=== PATIENT | male | born 1955 | race African-American/Black ===

== ENCOUNTER 2020-01-09 15:04 | Observation (INO) | payer MEDICARE, OTHER ==
--- NOTE | 2020-01-09 15:06 | ERPHSYRPT ---
- History of Present Illness Time Seen by Provider: 01/09/20 15:06 Source: EMS Exam Limitations: clinical condition Physician History: This is a 64-year-old white male who presents via EMS with a history of syncope and "bleeding" from scrotum without evidence of injury. Patient arrived at the boat dock at [facility]. There was a call to the ambulance service with the above stated complaints. In route to this facility, the patient was in and out of consciousness. Because of the EMS report, immediately upon arrival through the emergency department doors, the patient went to the CAT scan to obtain a CAT scan of his head, chest and abdomen pelvis. Report from EMS states that there are no known drug allergies. EMS also states that the patient told them he is never had a heart attack or cardiac stents in the past. He only has diabetes and hypertension. Timing/Duration: today Severity: mild Associated Symptoms: syncope, other (Oozing of blood from scrotum. Mild and of low rate) Allergies/Adverse Reactions: No Known Drug Allergies Allergy (Unverified 01/09/20 15:49) Home Medications: Allopurinol 100 mg [Zyloprim 100 mg] 1 ea DAILY 01/09/20 [History] Metformin HCl 1,000 mg DAILY 01/09/20 [History] Testosterone Cypionate 1 ea 2XW 01/09/20 [History] Travel Risk - International Travel Have you traveled outside of the country in past 3 weeks: No Have you or anyone close to you been diagnosed with or: No Do your reside in a community with a known COVID-19 case?: Yes If Yes where:: [facility] - Coronavirus Screening Has patient experienced Coronavirus symptoms: No - Review of Systems Constitutional: Weakness, Other (Dizzy) Eyes: No Symptoms Ears, Nose, & Throat: No Symptoms Respiratory: No Symptoms Cardiac: No Symptoms Abdominal/Gastrointestinal: No Symptoms Genitourinary Symptoms: No Symptoms Musculoskeletal: No Symptoms Skin: Other (Leading from scrotal sac on the right side) Neurological: Dizziness, Other (Couple episodes) Psychological: No Symptoms Endocrine: No Symptoms Hematologic/Lymphatic: No Symptoms Immunological/Allergic: No Symptoms All Other Systems: Reviewed and Negative - Past Medical History Neurological History: No Pertinent History ENT History: No Pertinent History Cardiac History: Hypertension Respiratory History: No Pertinent History Endocrine Medical History: Diabetes Type II Musculoskeletal History: No Pertinent History GI Medical History: No Pertinent History History: No Pertinent History Psycho-Social History: No Pertinent History - Past Surgical History Neuro Surgical History: No Pertinent History Cardiac: No Pertinent History Respiratory: No Pertinent History Gastrointestinal: No Pertinent History Genitourinary: No Pertinent History Musculoskeletal: No Pertinent History Male Surgical History: No Pertinent History - Nursing Vital Signs Nursing Vital Signs: Initial Vital Signs Temperature 97.4 F 01/09/20 15:05 Pulse Rate 63 01/09/20 15:05 Respiratory Rate 16 01/09/20 15:05 Blood Pressure 168/85 01/09/20 15:05 O2 Sat by Pulse Oximetry 97 01/09/20 15:05 Pain Scale Pain Intensity 2 - Physical Exam General Appearance: no apparent distress, alert, obese Eye Exam: PERRL/EOMI, eyes nml inspection Ears, Nose, Throat Exam: normal ENT inspection, moist mucous membranes Neck Exam: normal inspection, non-tender, supple, full range of motion Respiratory Exam: normal breath sounds, lungs clear, airway intact, No chest tenderness, No respiratory distress Cardiovascular Exam: regular rate/rhythm, normal heart sounds, normal peripheral pulses Gastrointestinal/Abdomen Exam: soft, normal bowel sounds, No tenderness, No guarding, No rebound Male Genitalia Exam: other (Superficial venous ooze from a braised varicosity.) Rectal Exam: not done Back Exam: normal inspection, normal range of motion, No CVA tenderness, No vertebral tenderness Extremity Exam: normal inspection, normal range of motion, pelvis stable Neurologic Exam: alert, oriented x 3, cooperative, 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 No acute ischemic changes. No comparison EKG available) Ordered Tests: Active Orders 24 hr Category Date Time Status EKG-ER Only STAT Care 01/09/20 15:07 Active IV Insertion STAT Care 01/09/20 15:07 Active ABDOMEN AND PELVIS W/0 CONTRAS [CT] Stat Exams 01/09/20 15:06 Taken CHEST WITHOUT CONTRAST [CT] Stat Exams 01/09/20 15:06 Taken HEAD WITHOUT CONTRAST [CT] Stat Exams 01/09/20 15:06 Taken ACETAMINOPHEN Stat Lab 01/09/20 15:45 Completed AMYLASE Stat Lab 01/09/20 15:45 Completed CBC W DIFF Stat Lab 01/09/20 15:45 Completed CMP Stat Lab 01/09/20 15:45 Completed ETHYL ALCOHOL Stat Lab 01/09/20 15:45 Completed LIPASE Stat Lab 01/09/20 15:45 Completed Lactic Acid Stat Lab 01/09/20 15:12 Completed Lactic Acid Stat Lab 01/09/20 17:27 Received PROTIME WITH INR Stat Lab 01/09/20 15:45 Completed SALICYLATE Stat Lab 01/09/20 15:45 Completed TROPONIN Q3H Lab 01/09/20 15:45 Completed TROPONIN Q3H Lab 01/09/20 18:15 Ordered TROPONIN Q3H Lab 01/09/20 21:15 Ordered TROPONIN Q3H Lab 01/10/20 00:15 Ordered TROPONIN Q3H Lab 01/10/20 03:15 Ordered UA W/RFX UR CULTURE Stat Lab 01/09/20 17:40 Completed Urine Triage Profile Stat Lab 01/09/20 17:40 Completed Transfer Order Routine Transfer 01/09/20 Ordered Medication Summary Discontinued Medications Generic Name Dose Route Start Last Admin Trade Name Freq PRN Reason Stop Dose Admin Sodium Chloride 1,000 mls @ 999 mls/hr 01/09/20 15:07 01/09/20 18:13 Sodium Chloride 0.9% 1000 Ml IV 01/09/20 16:07 Infused .Q1H1M STA Infusion Sodium Chloride Confirm 01/09/20 15:33 Sodium Chloride 0.9% 1000 Ml Administered 01/09/20 15:34 Dose 1,000 mls @ ud .ROUTE .STK-MED ONE Lab/Rad Data: Laboratory Result Diagrams 01/09/20 15:45 01/09/20 15:45 Laboratory Results 01/09/20 01/09/20 01/09/20 Range/Units 17:40 17:40 15:45 WBC (4.0-10.5) K/mm3 RBC (4.1-5.6) M/mm3 Hgb (12.5-18.0) gm/dl Hct (42-50) % MCV (78-100) fl MCH (26-32) pg MCHC (32-36) g/dl RDW (11.5-14.0) % Plt Count (150-450) K/mm3 MPV (7.5-11.0) fl Gran % (36.0-66.0) % Eos # (Auto) (0-0.5) Absolute Lymphs (auto) (1.0-4.6) Absolute Monos (auto) (0.0-1.3) Lymphocytes % (24.0-44.0) % Monocytes % (0.0-12.0) % Eosinophils % (0.00-5.0) % Basophils % (0.0-0.4) % Absolute Granulocytes (1.4-6.9) Basophils # (0-0.4) PT (8.83-12.87) SECONDS INR (0.8-3.0) Sodium (137-145) mmol/L Potassium (3.5-5.1) mmol/L Chloride (98-107) mmol/L Carbon Dioxide (22-30) mmol/L Anion Gap (5-15) MEQ/L BUN (9-20) mg/dL Creatinine (0.66-1.25) mg/dL Estimated GFR ML/MIN Glucose (74-106) mg/dL Lactic Acid (0.4-2.0) Calcium (8.4-10.2) mg/dL Total Bilirubin (0.2-1.3) mg/dL AST (17-59) U/L ALT (0-50) U/L Alkaline Phosphatase (38-126) U/L Troponin I < 0.012 (0.000-0.034) ng/mL Serum Total Protein (6.3-8.2) g/dL Albumin (3.5-5.0) g/dL Amylase (30-110) U/L Lipase (23-300) U/L Urine Color YELLOW (YELLOW) Urine Appearance CLEAR (CLEAR) Urine pH 6.0 (5-6) Ur Specific [place] 1.019 (1.005-1.025) Urine Protein NEGATIVE (Negative) Urine Ketones NEGATIVE (NEGATIVE) Urine Blood NEGATIVE (0-5) Sunny/ul Urine Nitrite NEGATIVE (NEGATIVE) Urine Bilirubin NEGATIVE (NEGATIVE) Urine Urobilinogen NEGATIVE (0-1) mg/dL Ur Leukocyte Esterase NEGATIVE (NEGATIVE) Urine WBC (Auto) NONE (0-5) /HPF Urine RBC (Auto) NONE (0-2) /HPF U Hyaline Cast (Auto) 0-2 (0-2) /LPF U Epithel Cells (Auto) NONE (FEW) /HPF Urine Bacteria (Auto) NONE (NEGATIVE) /HPF Urine Culture Reflexed NO (NO) Urine Glucose 150 (NEGATIVE) mg/dL Salicylates (2-20) mg/dL Urine Opiates Level NEGATIVE (NEGATIVE) Ur Methadone NEGATIVE (NEGATIVE) Acetaminophen (10-30) ug/ml Urine Barbiturates NEGATIVE (NEGATIVE) Ur Phencyclidine (PCP) NEGATIVE (NEGATIVE) Urine Amphetamine NEGATIVE (NEGATIVE) U Benzodiazepine Level NEGATIVE (NEGATIVE) Urine Cocaine NEGATIVE (NEGATIVE) Urine Marijuana (THC) NEGATIVE (NEGATIVE) Ethyl Alcohol (0-10) mg/dL ABO Group Rh Factor Antibody Screen (NEGATIVE) 01/09/20 01/09/20 01/09/20 Range/Units 15:45 15:45 15:45 WBC (4.0-10.5) K/mm3 RBC (4.1-5.6) M/mm3 Hgb (12.5-18.0) gm/dl Hct (42-50) % MCV (78-100) fl MCH (26-32) pg MCHC (32-36) g/dl RDW (11.5-14.0) % Plt Count (150-450) K/mm3 MPV (7.5-11.0) fl Gran % (36.0-66.0) % Eos # (Auto) (0-0.5) Absolute Lymphs (auto) (1.0-4.6) Absolute Monos (auto) (0.0-1.3) Lymphocytes % (24.0-44.0) % Monocytes % (0.0-12.0) % Eosinophils % (0.00-5.0) % Basophils % (0.0-0.4) % Absolute Granulocytes (1.4-6.9) Basophils # (0-0.4) PT 12.8 (8.83-12.87) SECONDS INR 1.13 (0.8-3.0) Sodium 139 (137-145) mmol/L Potassium 4.1 (3.5-5.1) mmol/L Chloride 102 (98-107) mmol/L Carbon Dioxide 24 (22-30) mmol/L Anion Gap 17.6 H (5-15) MEQ/L BUN 30 H (9-20) mg/dL Creatinine 1.10 (0.66-1.25) mg/dL Estimated GFR > 60.0 ML/MIN Glucose 327 H (74-106) mg/dL Lactic Acid (0.4-2.0) Calcium 10.0 (8.4-10.2) mg/dL Total Bilirubin 0.90 (0.2-1.3) mg/dL AST 31 (17-59) U/L ALT 61 H (0-50) U/L Alkaline Phosphatase 90 (38-126) U/L Troponin I (0.000-0.034) ng/mL Serum Total Protein 8.0 (6.3-8.2) g/dL Albumin 4.6 (3.5-5.0) g/dL Amylase 68 (30-110) U/L Lipase 87 (23-300) U/L Urine Color (YELLOW) Urine Appearance (CLEAR) Urine pH (5-6) Ur Specific [place] (1.005-1.025) Urine Protein (Negative) Urine Ketones (NEGATIVE) Urine Blood (0-5) Sunny/ul Urine Nitrite (NEGATIVE) Urine Bilirubin (NEGATIVE) Urine Urobilinogen (0-1) mg/dL Ur Leukocyte Esterase (NEGATIVE) Urine WBC (Auto) (0-5) /HPF Urine RBC (Auto) (0-2) /HPF U Hyaline Cast (Auto) (0-2) /LPF U Epithel Cells (Auto) (FEW) /HPF Urine Bacteria (Auto) (NEGATIVE) /HPF Urine Culture Reflexed (NO) Urine Glucose (NEGATIVE) mg/dL Salicylates 1.0 L (2-20) mg/dL Urine Opiates Level (NEGATIVE) Ur Methadone (NEGATIVE) Acetaminophen < 10 L (10-30) ug/ml Urine Barbiturates (NEGATIVE) Ur Phencyclidine (PCP) (NEGATIVE) Urine Amphetamine (NEGATIVE) U Benzodiazepine Level (NEGATIVE) Urine Cocaine (NEGATIVE) Urine Marijuana (THC) (NEGATIVE) Ethyl Alcohol < 10 (0-10) mg/dL ABO Group A Rh Factor NEGATIVE Antibody Screen NEGATIVE (NEGATIVE) 01/09/20 01/09/20 Range/Units 15:45 15:12 WBC 10.4 (4.0-10.5) K/mm3 RBC 5.29 (4.1-5.6) M/mm3 Hgb 15.7 (12.5-18.0) gm/dl Hct 45.3 (42-50) % MCV 85.6 (78-100) fl MCH 29.7 (26-32) pg MCHC 34.7 (32-36) g/dl RDW 13.9 (11.5-14.0) % Plt Count 309 (150-450) K/mm3 MPV 9.1 (7.5-11.0) fl Gran % 69.8 H (36.0-66.0) % Eos # (Auto) 0 (0-0.5) Absolute Lymphs (auto) 2.36 (1.0-4.6) Absolute Monos (auto) 0.75 (0.0-1.3) Lymphocytes % 22.8 L (24.0-44.0) % Monocytes % 7.2 (0.0-12.0) % Eosinophils % 0.0 (0.00-5.0) % Basophils % 0.2 (0.0-0.4) % Absolute Granulocytes 7.22 H (1.4-6.9) Basophils # 0.02 (0-0.4) PT (8.83-12.87) SECONDS INR (0.8-3.0) Sodium (137-145) mmol/L Potassium (3.5-5.1) mmol/L Chloride (98-107) mmol/L Carbon Dioxide (22-30) mmol/L Anion Gap (5-15) MEQ/L BUN (9-20) mg/dL Creatinine (0.66-1.25) mg/dL Estimated GFR ML/MIN Glucose (74-106) mg/dL Lactic Acid 2.1 H (0.4-2.0) Calcium (8.4-10.2) mg/dL Total Bilirubin (0.2-1.3) mg/dL AST (17-59) U/L ALT (0-50) U/L Alkaline Phosphatase (38-126) U/L Troponin I (0.000-0.034) ng/mL Serum Total Protein (6.3-8.2) g/dL Albumin (3.5-5.0) g/dL Amylase (30-110) U/L Lipase (23-300) U/L Urine Color (YELLOW) Urine Appearance (CLEAR) Urine pH (5-6) Ur Specific [place] (1.005-1.025) Urine Protein (Negative) Urine Ketones (NEGATIVE) Urine Blood (0-5) Sunny/ul Urine Nitrite (NEGATIVE) Urine Bilirubin (NEGATIVE) Urine Urobilinogen (0-1) mg/dL Ur Leukocyte Esterase (NEGATIVE) Urine WBC (Auto) (0-5) /HPF Urine RBC (Auto) (0-2) /HPF U Hyaline Cast (Auto) (0-2) /LPF U Epithel Cells (Auto) (FEW) /HPF Urine Bacteria (Auto) (NEGATIVE) /HPF Urine Culture Reflexed (NO) Urine Glucose (NEGATIVE) mg/dL Salicylates (2-20) mg/dL Urine Opiates Level (NEGATIVE) Ur Methadone (NEGATIVE) Acetaminophen (10-30) ug/ml Urine Barbiturates (NEGATIVE) Ur Phencyclidine (PCP) (NEGATIVE) Urine Amphetamine (NEGATIVE) U Benzodiazepine Level (NEGATIVE) Urine Cocaine (NEGATIVE) Urine Marijuana (THC) (NEGATIVE) Ethyl Alcohol (0-10) mg/dL ABO Group Rh Factor Antibody Screen (NEGATIVE) - Progress Progress: improved Progress Note: 01/09/20 15:46 Cat scan of the head shows no intracranial abnormality. Medical decision making: This patient is back from the CAT scan suite. He is awake alert and oriented. Patient states that he has not fallen or hit his head or sustained any type of injury in recent history. He has no complaints of chest pain, shortness of breath or abdominal pain. The history obtained is that the patient first noticed bleeding from his right side of his scrotum. He felt dizzy as though he was going to pass out. He has no headache. He was helped down to the ground. EMS service was contacted. From the point of emergency medical service arrival to his arrival emergency department, the patient "passed out several times". Upon arrival to the emergency department from the radiology suite, the patient's vital signs are stable. On exam his lungs are clear, his heart is regular rate and rhythm, his abdomen is soft with diastases recti present. There is a small local hernia present. There is no significant pain. Evaluation of the patient scrotum shows an abrasion to a small vein that he is bleeding from. It is a slow constant ooze. Patient's bilateral lower extremities show multiple small varicosities. Neurologically, he is alert and oriented x4. His exam is nonfocal. He is moving all his extremities. He is able to provide us with his complete medical history. Patient denies any illicit drug or alcohol use today. Takes metformin, allopurinol, tramadol. They are working on providing him with an appropriate blood pressure medication. Our plan is to follow-up with the CAT scan of the chest abdomen and pelvis. Obtain laboratory data, review EKG. Place a pressure dressing to this very small punctate venous vessel opening. 01/09/20 18:[address] Pizano. I reviewed the patient history, condition, x-ray results, EKG results, laboratory results. Cat scan of the chest and abdomen show no acute intrathoracic or intra-abdominal process or pathology respectively. We will this patient in observation. We will repeat laboratory data, EKG, and keep him on a telemetry monitored bed. - Departure Departure Disposition: Observation Clinical Impression: Hyperglycemia, Syncope Condition: Stable Critical Care Time: No Referrals: Provider,Unknown [Primary Care Provider] -
[2020-01-09] MEDS ORDERED: Sodium Chloride 0.9% 1000 ML 1,000 ML IV STA (15:07)
[2020-01-09] MEDS ORDERED: Sodium Chloride 0.9% 1000 ML 1,000 ML ONE (15:33)
[2020-01-09 15:54] LABS: Absolute Neutrophil Ct (ANC) 7.22 (1.4-6.9); BASOPHIL % 0.2 % (0.0-0.4); Basophil (Absolute #) 0.02 (0-0.4); Eosinophil (Absolute #) 0 (0-0.5); Hematocrit 45.3 % (42-50); Hemoglobin 15.7 gm/dl (12.5-18.0); Lymphocyte (Absolute #) 2.36 (1.0-4.6); Lymphocytes % 22.8 % (24.0-44.0); Mean Cell Volume 85.6 fl (78-100); Mean Corpuscular Hemoglobin 29.7 pg (26-32); Mean Corpuscular Hgb Concent. 34.7 g/dl (32-36); Mean Platelet Volume 9.1 fl (7.5-11.0); Monocyte (Absolute #) 0.75 (0.0-1.3); Monocytes % 7.2 % (0.0-12.0); Neutrophil % 69.8 % (36.0-66.0); Platelet Count 309 K/mm3 (150-450); Red Blood Count 5.29 M/mm3 (4.1-5.6); Red Cell Distribution Width 13.9 % (11.5-14.0); White Blood Count 10.4 K/mm3 (4.0-10.5)
[2020-01-09 15:59] LABS: INR 1.13 (0.8-3.0); PROTIME 12.8 SECONDS (8.83-12.87)
[2020-01-09 16:06] LABS: ALBUMIN 4.6 g/dL (3.5-5.0); ALKALINE PHOSPHATASE 90 U/L (38-126); AMYLASE 68 U/L (30-110); ANION GAP 17.6 MEQ/L (5-15); BLOOD UREA NITROGEN 30 mg/dL (9-20); CHLORIDE 102 mmol/L (98-107); Carbon Dioxide 24 mmol/L (22-30); Glucose 327 mg/dL (74-106); LIPASE 87 U/L (23-300); Potassium 4.1 mmol/L (3.5-5.1); SGOT/AST 31 U/L (17-59); SGPT/ALT 61 U/L (0-50); SODIUM 139 mmol/L (137-145)
[2020-01-09 16:08] LABS: ACETAMINOPHEN < 10 ug/ml (10-30); ETHYL ALCOHOL < 10 mg/dL (0-10)
[2020-01-09 16:24] LABS: ABO TYPING A; RH TYPING NEGATIVE
[2020-01-09 16:32] LABS: Antibody Screen NEGATIVE (NEGATIVE)
[2020-01-09 17:52] LABS: Appearance CLEAR (CLEAR); Bilirubin NEGATIVE (NEGATIVE); Glucose 150 mg/dL (NEGATIVE); Hyaline Casts 0-2 /LPF (0-2); Ketones NEGATIVE (NEGATIVE); Leukocyte Esterase NEGATIVE (NEGATIVE); Nitrite NEGATIVE (NEGATIVE); Protein,Urine Dip NEGATIVE (Negative); Specific Gravity 1.019 (1.005-1.025); Urobilinogen NEGATIVE mg/dL (0-1)
[2020-01-09 17:53] LABS: Blood NEGATIVE Ery/ul (0-5)
[2020-01-09 18:03] LABS: Amphetamine,Urine NEGATIVE (NEGATIVE); Barbiturate,Urine NEGATIVE (NEGATIVE); Benzodiazepine,Urine NEGATIVE (NEGATIVE); Cocaine,Urine NEGATIVE (NEGATIVE); Methadone,Urine NEGATIVE (NEGATIVE); Opiate,Urine NEGATIVE (NEGATIVE); PCP,Urine NEGATIVE (NEGATIVE); THC,Urine NEGATIVE (NEGATIVE)
[2020-01-09] MEDS ORDERED: Zofran 4 MG/2 ML VIAL IV PRN (18:43)
[2020-01-09] MEDS ORDERED: Sodium Chloride 0.9% 1000 ML 1,000 ML IV SCH (18:43)
[2020-01-09] MEDS ORDERED: TYLENOL 325 MG PO PRN (18:43)
--- NOTE | 2020-01-09 20:31 | XRAY ---
Indication: Acute mental status change. Multiple contiguous axial images obtained through the head without contrast. Comparison: None Ventriculosulcal pattern appears symmetric. No acute intracranial hemorrhage, abnormal extra-axial fluid question, or mass effect. Fourth ventricle is midline without hydrocephalus. Asntana-white matter differentiation preserved. Bony calvarium intact. Visualized paranasal sinuses and mastoid air cells are clear. Impression: Negative CT head without contrast exam. Comment: Preliminary interpretation was made by [facility]. No critical discrepancy.
--- NOTE | 2020-01-09 20:35 | XRAY ---
Indication: Left-sided chest and back pain. Acute mental status change. Multiple contiguous axial images obtained through the chest without contrast. Comparison: None Lungs demonstrates minimal bilateral dependent atelectasis and minimal bibasilar fibrosis/scarring. No suspicious pulmonary mass, infiltrate, or effusion. Heart is enlarged. Aorta is normal in course and caliber. Small left perihilar calcified nodes. No pathologic mediastinal lymphadenopathy. Bony thorax intact with mild degenerative changes throughout the spine. CT abdomen/pelvis reported separately. Impression: 1. Cardiomegaly, fibrosis/scarring, left hilar calcified granulomas, and bony degenerative changes. 2. Remaining CT chest without contrast exam is negative. Comment: Preliminary interpretation was made by [facility]. No critical discrepancy.
--- NOTE | 2020-01-09 20:37 | XRAY ---
Indication: Scrotal bleeding. Acute mental status change. Multiple contiguous axial images obtained through the abdomen and pelvis without contrast as ordered. Comparison: None CT chest reported separately. Noncontrasted stomach and bowel loops appear nonobstructed. Normal appendix. Mild fecal debris predominantly in the ascending and transverse colon. Minimal sigmoid diverticulosis. No free fluid/air. 2-3 mm nonobstructing right renal calculus. Mild fatty hepatomegaly measuring 22 cm. 14.5 cm splenomegaly with calcified granulomas. Remaining liver, gallbladder, pancreas, spleen, adrenal glands, kidneys, ureters, and bladder appear unremarkable for noncontrast exam. Mild scattered aortoiliac calcifications without AAA. Osseous structures intact with mild degenerative changes throughout the thoracolumbar spine. No ventral or inguinal hernias. Impression: 1. Sigmoid diverticulosis, nonobstructing right renal micro-calculus, fatty hepatomegaly, splenomegaly, chronic bony findings, and evidence for old granulomatous disease. 2. Remaining CT abdomen/pelvis without contrast exam is negative. Comment: Preliminary interpretation was made by [facility]. No critical discrepancy.
[2020-01-10 04:20] LABS: Absolute Neutrophil Ct (ANC) 6.29 (1.4-6.9); BASOPHIL % 0.2 % (0.0-0.4); Basophil (Absolute #) 0.02 (0-0.4); Eosinophil % 0.3 % (0.00-5.0); Eosinophil (Absolute #) 0.03 (0-0.5); Hematocrit 44.9 % (42-50); Hemoglobin 15.2 gm/dl (12.5-18.0); Lymphocyte (Absolute #) 2.87 (1.0-4.6); Lymphocytes % 28.8 % (24.0-44.0); Mean Cell Volume 87.9 fl (78-100); Mean Corpuscular Hemoglobin 29.7 pg (26-32); Mean Corpuscular Hgb Concent. 33.9 g/dl (32-36); Mean Platelet Volume 8.7 fl (7.5-11.0); Monocyte (Absolute #) 0.76 (0.0-1.3); Monocytes % 7.6 % (0.0-12.0); Neutrophil % 63.1 % (36.0-66.0); Platelet Count 270 K/mm3 (150-450); Red Blood Count 5.11 M/mm3 (4.1-5.6); Red Cell Distribution Width 14.3 % (11.5-14.0)
[2020-01-10 04:28] LABS: ALKALINE PHOSPHATASE 75 U/L (38-126); ANION GAP 14.5 MEQ/L (5-15); BLOOD UREA NITROGEN 25 mg/dL (9-20); CHLORIDE 101 mmol/L (98-107); Calcium 9.3 mg/dL (8.4-10.2); Carbon Dioxide 27 mmol/L (22-30); Creatinine 1 0.88 mg/dL (0.66-1.25); Glucose 249 mg/dL (74-106); Potassium 4.5 mmol/L (3.5-5.1); SGOT/AST 26 U/L (17-59); SGPT/ALT 51 U/L (0-50); SODIUM 139 mmol/L (137-145); Total Protein 7.2 g/dL (6.3-8.2)
[2020-01-10] MEDS: HUMULIN R SQ PRN ×2 (07:51→12:07)
--- NOTE | 2020-01-10 12:09 | PCM.DCORD ---
- Discharge Discharge Date: 01/10/20 Disposition: Home, Self-Care Condition: Good Prescriptions: Continue Metformin HCl 1,000 mg PO DAILY Allopurinol 100 mg [Zyloprim 100 mg] 1 ea PO DAILY Testosterone Cypionate 1 ea IM UD Discontinued Ibuprofen 200 mg [Motrin 200 mg] 600 mg PO BID PRN PRN PRN Reason: Pain Additional Instructions: Keep dressing in place on scrotum for another [address] Dejesus tomorrow for a follow up appointment this week please. Return to the ER if any chest pain, shortness of breath, dizziness, lightheadedness or any other concerns. Stay out of the heat and drink plenty of water. Continue to check your blood glucoses at least twice a day. Follow up with: Provider,Unknown [Primary Care Provider] - 1 Week
[2020-01-10 12:56] VITALS: BP 140/75; PULSE 58; O2SAT 97
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
== END 2020-01-10 13:14 | disposition home or self-care (01) ==
LOC: ED 15:04 → MED SURG 18:40
PROVIDERS: ADMIT Internal Medicine; ATTEND Internal Medicine
DX: T67.1XXA Heat syncope, initial encounter (principal); E11.65 Type 2 diabetes mellitus with hyperglycemia; R00.1 Bradycardia, unspecified; N50.1 Vascular disorders of male genital organs; K57.30 Diverticulosis of large intestine without perforation or abscess without bleeding; R42 Dizziness and giddiness; R53.1 Weakness; I10 Essential (primary) hypertension; Z79.899 Other long term (current) drug therapy
CPT/HCPCS: 36000; 36415; 70450; 71250; 74176; 80053; 80307; 81001; 82150; 82962; 83036; 83605; 83690; 84484; 85025; 85610; 86850; 86900; 86901; 93005; 93268; 94762; 96360; 99285; G0378; G0480; G0481; J1815